=== PATIENT | male | born 1965 | race Caucasian/White ===

== ENCOUNTER 2017-04-20 05:23 | Emergency (ER) | payer OTHER ==
[~2017-04-20] VITALS: Ht 170.2 cm; Wt 79.1 kg
[2017-04-20] MEDS ORDERED: ONDANSETRON ODT 4 MG PO ONE (06:00)
[2017-04-20] MEDS ORDERED: SODIUM CHLORIDE 0.9% 1,000ML IVBOLUS ONE (06:00)
[2017-04-20] MEDS ORDERED: THIAMINE 100MG TABLET PO ONE (06:00)
[2017-04-20] MEDS ORDERED: ONDANSETRON ODT 4 MG ONE (06:18)
[2017-04-20] MEDS ORDERED: THIAMINE 100MG TABLET ONE (06:18)
[2017-04-20 06:25] LABS: ASPARTATE AMINO TRANSFERASE 36 U/L (15-37); BLOOD UREA NITROGEN 8 mg/dL (7-18)
[2017-04-20 06:29] LABS: ACETAMINOPHEN < 2 mcg/mL (10-30)
[2017-04-20 08:35] LABS: DAU SCREEN DISCLAIMER
[2017-04-20] MEDS ORDERED: METOCLOPRAMIDE 5 MG/ML, 2ML ONE (09:03)
[2017-04-20] MEDS ORDERED: METOCLOPRAMIDE 5 MG/ML, 2ML IVPush ONE (09:30)
[2017-04-20 13:09] VITALS: BP 122/74
== END 2017-04-20 13:11 | disposition home or self-care (01) ==
LOC: ED 05:49
DX: F10.220 Alcohol dependence with intoxication, uncomplicated (principal); G47.00 Insomnia, unspecified
CPT/HCPCS: 36415; 71010; 80053; 80307; 80329; 83690; 85025; 93005; 96361; 96374; 99285; J2765; J7030; Q0162; G0480

== ENCOUNTER 2020-09-29 05:28 | Emergency (ER) | payer OTHER ==
[~2020-09-29] VITALS: Ht 167.6 cm; Wt 80.0 kg
--- NOTE | 2020-09-29 05:49 | NUR ---
LAST ETOH 3HRS AGO
--- NOTE | 2020-09-29 05:50 | NUR ---
THIS IS A 55Y M BIB FAMILY FROM HOME FOR ETOH "WITHDRAWL" PT WANTING TO DETOX FROM ETOH. PER PT LAST ETOH INTAKE WAS 3HRS AGO. PT STS HE HAS BEEN DRINKING LARGE BOTTLES OF TEQUILA SINCE 09/20 AND HAS NOT SLEPT OR EATEN IN 5 DAYS. PER FAMLILY ATTEMPED TO TAKE HIM TO ANOTHER FACILITY BUT PT INSISTED UPON LEAVING THAT LOCATION.
--- NOTE | 2020-09-29 06:18 | NUR ---
KELSY HANDLEY FROM [facility]ARM AT THIS TIME
--- NOTE | 2020-09-29 06:20 | NUR ---
PT PROVIDED URINAL AND INSTRUCTED ON USE
[2020-09-29] MEDS ORDERED: MAGNESIUM SULFATE 1 GM, THIAMINE 100 MG, FOLIC ACID 1 MG in SODIUM CHLORIDE 0.9% 1,000 ML IV ONE (06:30)
[2020-09-29] MEDS ORDERED: SODIUM CHLORIDE FLUSH 10ML SYR IVF ONE (06:30)
[2020-09-29 06:49] LABS: BASOPHILS % (AUTO) 0 % (0-1); EOSINOPHILS % (AUTO) 0 % (1-7); LYMPHOCYTES % (AUTO) 32 % (22-44); MEAN CORPUSCULAR HEMOGLOBIN 29.7 pg (27.5-34.5); MEAN PLATELET VOLUME 7.3 fL (7.4-10.4); MONOCYTES % (AUTO) 8 % (2-9); NEUTROPHILS % (AUTO) 60 % (42-75); PLATELET COUNT 220 x10^3/uL (130-400); RED BLOOD COUNT 4.92 x10^6/uL (4.38-5.82); RED CELL DISTRIBUTION WIDTH 13.4 % (9.4-14.8)
[2020-09-29 06:55] LABS: ALBUMIN 3.4 g/dL (3.4-5.0); ANION GAP 5 mmol/L (5-15); CALCIUM 7.8 mg/dL (8.5-10.1); CHLORIDE 106 mmol/L (98-107)
--- NOTE | 2020-09-29 06:57 | NUR ---
BEDSIDE REPORT GIVEN TO PARAG HERNDONFINANCIAL PROJECT MANAGER OF CARE AT THIS TIME
--- NOTE | 2020-09-29 06:57 | NUR ---
REPORT RECEIVED CARE ASSUMED. PT LAYING ON GURNEY, NO ACUTE DISTRESS NOTED. IV INFUSING WIHTOUT REDNESS/SWELLING. PT STATES "FEEL SCARED, SHAKEY" AUTO BP, PULSE OX IN PLACE. AWAITING TEST RESULTS.
[2020-09-29 06:59] LABS: ALANINE AMINOTRANSFERASE 101 U/L (12-78); ALKALINE PHOSPHATASE 93 U/L (45-117); BILIRUBIN,TOTAL 1.4 mg/dL (0.2-1.0); CREATININE 0.85 mg/dL (0.7-1.3); TOTAL PROTEIN 6.7 g/dL (6.4-8.2)
[2020-09-29 07:09] LABS: MD NO
--- NOTE | 2020-09-29 08:08 | NUR ---
PT AMB TO BR, GAIT STEADY. PT CALLED FAMILY FOR TRANSPORT HOME. IV DC'D WITH CANNULA INTACT. REVIEWED DC INSTRUCTIONS WITH PT. PT TO F/U WITH OUTPATIENT SUBSTANCE ABUSE FACILITIES. UNDERSTANDING VERBALIZED.
[2020-09-29 08:09] VITALS: BP 121/72
== END 2020-09-29 08:13 | disposition home or self-care (01) ==
LOC: ED 06:54
DX: F10.220 Alcohol dependence with intoxication, uncomplicated (principal); I45.9 Conduction disorder, unspecified; Y90.9 Presence of alcohol in blood, level not specified
CPT/HCPCS: 36415; 80053; 80320; 83735; 85025; 93005; 96365; 96366; 99284; J3411; J3475; J7030; G0480